=== PATIENT | male | born 2000 | race Caucasian/White ===

== ENCOUNTER 2020-04-20 01:25 | Emergency (ER) | payer OTHER ==
[~2020-04-20] VITALS: Ht 185.4 cm; Wt 63.2 kg
[2020-04-20 01:33] VITALS: TEMP 96.8
[2020-04-20 03:17] VITALS: BP 106/93; PULSE 55
== END 2020-04-20 03:40 | disposition home or self-care (01) ==
LOC: COL.ER 01:25 → EDBD 01:26 → COL.ER 01:26
DX: F10.129 Alcohol abuse with intoxication, unspecified (principal); Y90.6 Blood alcohol level of 120-199 mg/100 ml
CPT/HCPCS: J2405; J7030